=== PATIENT | female | born 1940 | race Caucasian/White ===

== ENCOUNTER → 2016-09-30 | Outpatient (REF) | payer MEDICARE, MEDICAID ==
[~2016-09-30] MED LIST: AMAR1TAB5 PO; CENTTAB PO; CIPRHCOTIC AD; CIPRODEX AD; ECOT81TA5 PO; FENO160T10 PO; GABA-279 PO; GLYX1TAB3 PO; LISI-542 PO; MAGN70CA PO; METF1000 PO; METF500T PO; OMEP40CA2 PO; VITA50003 PO; VITA500C24 PO
[2016-09-30 12:00] LABS: ALBUMIN 3.7 GM/DL (3.2-5.2); ALBUMIN/GLOBULIN RATIO 1.06 (1.00-1.93); BILIRUBIN,TOTAL 0.5 MG/DL (0.2-1.0); CALCIUM LEVEL 9.3 MG/DL (8.8-10.2); CREATININE FOR GFR 1.18 MG/DL (0.55-1.02); GLOMERULAR FILTRATION RATE 47.3 (>39); TOTAL PROTEIN 7.2 GM/DL (6.4-8.2)
== END | disposition home or self-care (01) ==
LOC: M LABDRAW1 11:12
PROVIDERS: ATTEND Family Medicine
DX: E11.40 Type 2 diabetes mellitus with diabetic neuropathy, unspecified (principal)

== ENCOUNTER 2016-10-21 10:20 | Emergency (ER) | payer MEDICARE, MEDICAID ==
[2016-10-21] MEDS ORDERED: CLINDAMYCIN 150 MG CAP As Ordered ONE (11:09)
--- NOTE | 2016-10-21 11:32 | EDDOCDS ---
Nurse's Notes [facility] Name: Edita Landeros Age: 76 yrs Sex: Female : 1940 Arrival Date: 10/21/2016 Time: 10:20 Bed TR7 Private MD: Maribel Gabriel A Diagnosis: Local infection of the skin and subcutaneous tissue, unspecified-Right hand versus cyst/other mass Presentation: 10/21 10:27 Presenting complaint: Patient states: she has had a bump on her right hand for 3 weeks. kcs Adult Sepsis Screening: The patient does not have new or worsening altered mentation. Patient's respiratory rate is less than 22. Systolic blood pressure is greater than 100. Patient has a qSOFA score of 0- Negative Sepsis Screen. Suicide/Homicide risk assessment- the patient denies having any suicidal and/or homicidal ideations and does not present with any other emotional, behavioral or mental health complaints. Status: Patient is not a service porter or dependent. Transition of care: patient was not received from another setting of care. 10:27 Acuity: BRITNEY Level 4 kcs 10:27 Method Of Arrival: Walkin/Carried/Asstd kcs Triage Assessment: 10:35 General: Appears comfortable, well developed, well nourished, well groomed, Behavior is kcs cooperative, pleasant. Pain: Location: right hand Pain currently is 5 out of 10 on a pain scale. At worst was 8 out of 10 on a pain scale. Neurological: Level of Consciousness is awake, alert. Respiratory: Airway is patent Respiratory effort is even, unlabored, Respiratory pattern is regular, symmetrical. Derm: Skin is intact, is healthy with good turgor, Skin is dry, Skin is normal, lump with protrusion to back of right hand. Historical: - Allergies: No known drug Allergies; - Home Meds: 1. fenofibrate 160 mg oral tab 1 tab once daily 2. Amaryl 2 mg Oral tab 1 tab once daily 3. Glyxambi 10-5 mg oral tab 1 tab once daily 4. gabapentin 100 mg oral tab 2-3 capsules 3-4 times daily 5. acetaminophen-codeine 300-30 mg Oral tab 1 tab every 6 hours as needed 6. Drisdol 50,000 unit Oral cap 1 cap once wkly 7. lisinopril 5 mg Oral tab 1 tab once daily 8. Dexilant 60 mg oral CpDB 1 cap once daily 9. multivitamin Oral tab daily 10. Magnesium Oxide 400 mg daily every 2-3 days Oral 11. Vitamin C 500 mg Oral tab daily 12. Fish Oil 1,000 mg Oral cap twice a day - PMHx: hyperlipidemia; - PSHx: R ear surgery; - Social history: Smoking status: Patient states was never smoker of tobacco. No barriers to communication noted, The patient speaks fluent Bulgarian. - Family history: Not pertinent. - : The pt / caregiver states he / she is not on anticoagulants. Home medication list is obtained from the patient, MD office list. - Exposure Risk Screening:: None identified. Screenin:30 Screening information is obtained from the patient. Fall risk: No risks identified. srm Assistance ADL's: requires no assistance with activities of daily living. Abuse/DV Screen: The patient / caregiver reports he/she is: not in a situation that causes fear, pain or injury. Nutritional screening: No deficits noted. Advance Directives: There is no active DNR order. home support is adequate. Assessment: 11:11 General: Appears in no apparent distress, Behavior is appropriate for age, cooperative. srm Neurological: No deficits noted. EENT: No deficits noted. Respiratory: No deficits noted. GI: No deficits noted. Derm: swollen are to top of right hand. Vital Signs: 10:22 BP 139 / 76; Pulse 93; Resp 18; Temp 96.0(O); Pulse Ox 95% on R/A; Weight 75.3 kg (R); lr2 Height 5 ft. 1 in. (154.94 cm) (R); Pain 0/10; 10:22 Body Mass Index 31.37 (75.30 kg, 154.94 cm) lr2 Vitals: 10:22 Log In Time: October 21, 2016 at 10:20. lr2 ED Course: 10:21 Patient visited by Justine Ibrahim. lr2 10:21 Patient moved to Waiting lr2 10:24 Maribel Gabriel is Private Physician. lr2 10:25 Patient moved to Pre RCE lr2 10:29 Triage Initiated kcs 10:37 Patient moved to Triage 1 kcs 10:46 Coco Varela PA-C is PHCP. ef1 10:46 Mariana Boone MD is Attending Physician. ef1 10:51 Patient visited by Coco Varela PA-C. ef1 11:06 Maribel Gabriel is Referral Physician. ef1 11:06 Edita Cooley RNNP is Referral Physician. ef1 11:14 Patient moved to [address] 11:30 The patient / caregiver is instructed regarding the plan of care and ED course. srm Accompanied by Family Member, Patient has correct armband on for positive identification. 11:30 No IV's were initiated during this patient's visit. No procedures done that require srm assistance. Administered Medications: 11:07 CANCELLED (Other Intervention Used): Acetaminophen Tablet 650 mg PO once ef1 11:11 Drug: Clindamycin 300 mg [clindamycin 150 mg capsule (2 caps)] Route: PO; [facility] Order Results: There are currently no results for this order. Outcome: 11:07 Discharge ordered by Provider. ef1 11:30 Discharge Assessment: Patient awake, alert and oriented x 3. No cognitive and/or srm functional deficits noted. Patient verbalized understanding of disposition instructions. patient administered narcotics - no. The following High Risk Discharge criteria are identified: None. Discharged to home ambulatory, with significant other, at 1115. Condition: stable Condition: improved. Discharge instructions given to patient, Instructed on discharge instructions, follow up and referral plans. medication usage, Demonstrated understanding of instructions, medications, Pt was receptive of discharge instructions/ teaching. Prescriptions given X 1. No special radiology studies were completed. Property sent home with patient. 11:31 Patient left the ED. [facility] Signatures: Dorothy Bautista RN RN [facility] Cecilia Bailey RN RN [facility] Coco Varela PA-C PA-C ef1 Justine Ibrahim lr2 MTDD
--- NOTE | 2016-10-21 11:32 | EDDOCDS ---
Physician Documentation [facility] Name: Edita Landeros Age: 76 yrs Sex: Female : 1940 Arrival Date: 10/21/2016 Time: 10:20 Bed TR7 Private MD: Maribel Gabirel A Disposition: 10/21/16 11:07 Discharged to Home/Self Care. Impression: Local infection of the skin and subcutaneous tissue, unspecified - Right hand versus cyst/other mass. - Condition is Stable. - Prescriptions for Clindamycin HCl 300 mg Oral Capsule - take 1 capsule by ORAL route every 6 hours; 40 capsule. - Medication Reconciliation, Local Pharmacy Hours form. - Follow up: Maribel Gabriel; When: 1 - 2 days; Reason: Recheck today's complaints, Continuance of care. Follow up: Emergency Department; Reason: Worsening of conditions. Follow up: Edita Cooley; When: 1 - 2 days; Reason: Further diagnostic work-up, Recheck today's complaints, Continuance of care. - Problem is new. - Symptoms have improved. Historical: - Allergies: No known drug Allergies; - Home Meds: 1. fenofibrate 160 mg oral tab 1 tab once daily 2. Amaryl 2 mg Oral tab 1 tab once daily 3. Glyxambi 10-5 mg oral tab 1 tab once daily 4. gabapentin 100 mg oral tab 2-3 capsules 3-4 times daily 5. acetaminophen-codeine 300-30 mg Oral tab 1 tab every 6 hours as needed 6. Drisdol 50,000 unit Oral cap 1 cap once wkly 7. lisinopril 5 mg Oral tab 1 tab once daily 8. Dexilant 60 mg oral CpDB 1 cap once daily 9. multivitamin Oral tab daily 10. Magnesium Oxide 400 mg daily every 2-3 days Oral 11. Vitamin C 500 mg Oral tab daily 12. Fish Oil 1,000 mg Oral cap twice a day - PMHx: hyperlipidemia; - PSHx: R ear surgery; - Social history: Smoking status: Patient states was never smoker of tobacco. No barriers to communication noted, The patient speaks fluent Welsh. - Family history: Not pertinent. - : The pt / caregiver states he / she is not on anticoagulants. Home medication list is obtained from the patient, MD office list. - Exposure Risk Screening:: None identified. Vital Signs: 10/21 10:22 BP 139 / 76; Pulse 93; Resp 18; Temp 96.0(O); Pulse Ox 95% on R/A; Weight 75.3 kg / lr2 166.01 lbs (R); Height 5 ft. 1 in. (154.94 cm) (R); Pain 0/10; 10:22 Body Mass Index 31.37 (75.30 kg, 154.94 cm) lr2 MDM: 11:04 Clindamycin 300 mg PO once ordered. ef1 11:21 Financial registration complete. mm15 Administered Medications: 11:07 CANCELLED (Other Intervention Used): Acetaminophen Tablet 650 mg PO once ef1 11:11 Drug: Clindamycin 300 mg [clindamycin 150 mg capsule (2 caps)] Route: PO; srm Signatures: Dorothy Bautista RN RN [facility] Cecilia Bailey RN RN srm Coco Varela, SANNA-C PA-C ef1 Daniel Garcia mm15 The chart was reviewed and I authenticate all verbal orders and agree with the evaluation and treatment provided.Corrections: (The following items were deleted from the chart) 11: 11:05 Acetaminophen Tablet 650 mg PO once ordered. ef1 ef1 MTDD
--- NOTE | 2016-10-23 12:32 | EDDOCDS ---
Physician Documentation [facility] Name: Edita Landeros Age: 76 yrs Sex: Female : 1940 Arrival Date: 10/21/2016 Time: 10:20 Bed TR7 Private MD: Maribel Gabriel A Disposition: 10/21/16 11:07 Discharged to Home/Self Care. Impression: Local infection of the skin and subcutaneous tissue, unspecified - Right hand versus cyst/other mass. - Condition is Stable. - Prescriptions for Clindamycin HCl 300 mg Oral Capsule - take 1 capsule by ORAL route every 6 hours; 40 capsule. - Medication Reconciliation, Local Pharmacy Hours form. - Follow up: Maribel Gabriel; When: 1 - 2 days; Reason: Recheck today's complaints, Continuance of care. Follow up: Emergency Department; Reason: Worsening of conditions. Follow up: Edita Cooley; When: 1 - 2 days; Reason: Further diagnostic work-up, Recheck today's complaints, Continuance of care. - Problem is new. - Symptoms have improved. Historical: - Allergies: No known drug Allergies; - Home Meds: 1. fenofibrate 160 mg oral tab 1 tab once daily 2. Amaryl 2 mg Oral tab 1 tab once daily 3. Glyxambi 10-5 mg oral tab 1 tab once daily 4. gabapentin 100 mg oral tab 2-3 capsules 3-4 times daily 5. acetaminophen-codeine 300-30 mg Oral tab 1 tab every 6 hours as needed 6. Drisdol 50,000 unit Oral cap 1 cap once wkly 7. lisinopril 5 mg Oral tab 1 tab once daily 8. Dexilant 60 mg oral CpDB 1 cap once daily 9. multivitamin Oral tab daily 10. Magnesium Oxide 400 mg daily every 2-3 days Oral 11. Vitamin C 500 mg Oral tab daily 12. Fish Oil 1,000 mg Oral cap twice a day - PMHx: hyperlipidemia; - PSHx: R ear surgery; - Social history: Smoking status: Patient states was never smoker of tobacco. No barriers to communication noted, The patient speaks fluent Slovak. - Family history: Not pertinent. - : The pt / caregiver states he / she is not on anticoagulants. Home medication list is obtained from the patient, MD office list. - Exposure Risk Screening:: None identified. Vital Signs: 10/21 10:22 BP 139 / 76; Pulse 93; Resp 18; Temp 96.0(O); Pulse Ox 95% on R/A; Weight 75.3 kg / lr2 166.01 lbs (R); Height 5 ft. 1 in. (154.94 cm) (R); Pain 0/10; 10:22 Body Mass Index 31.37 (75.30 kg, 154.94 cm) lr2 MDM: 11:04 Clindamycin 300 mg PO once ordered. ef1 11:21 Financial registration complete. mm15 13:17 T-Sheet-- Draft Copy was scanned into [email or web address] and attached to record. gb 13:30 [facility] Payment Agreement was scanned into [email or web address] and attached to record. mm15 Administered Medications: 11:07 CANCELLED (Other Intervention Used): Acetaminophen Tablet 650 mg PO once ef1 11:11 Drug: Clindamycin 300 mg [clindamycin 150 mg capsule (2 caps)] Route: PO; srm Signatures: Dorothy Bautista RN RN [facility] Cecilia Bailey RN RN srm Louise Casarez, Reg Reg gb Coco Varela PA-C PA-C ef1 Daniel Garcia mm15 The chart was reviewed and I authenticate all verbal orders and agree with the evaluation and treatment provided.Corrections: (The following items were deleted from the chart) 11:07 11:05 Acetaminophen Tablet 650 mg PO once ordered. ef1 ef1 Attachments: 13:17 T-Sheet-- Draft Copy gb 13:30 [facility] Payment Agreement mm15 Chart Complete MTDD
--- NOTE | 2016-10-23 12:32 | EDDOCDS ---
Physician Documentation [facility] Name: Edita Landeros Age: 76 yrs Sex: Female : 1940 Arrival Date: 10/21/2016 Time: 10:20 Bed TR7 Private MD: Maribel Gabriel A Disposition: 10/21/16 11:07 Discharged to Home/Self Care. Impression: Local infection of the skin and subcutaneous tissue, unspecified - Right hand versus cyst/other mass. - Condition is Stable. - Prescriptions for Clindamycin HCl 300 mg Oral Capsule - take 1 capsule by ORAL route every 6 hours; 40 capsule. - Medication Reconciliation, Local Pharmacy Hours form. - Follow up: Maribel Gabriel; When: 1 - 2 days; Reason: Recheck today's complaints, Continuance of care. Follow up: Emergency Department; Reason: Worsening of conditions. Follow up: Edita Cooley; When: 1 - 2 days; Reason: Further diagnostic work-up, Recheck today's complaints, Continuance of care. - Problem is new. - Symptoms have improved. Historical: - Allergies: No known drug Allergies; - Home Meds: 1. fenofibrate 160 mg oral tab 1 tab once daily 2. Amaryl 2 mg Oral tab 1 tab once daily 3. Glyxambi 10-5 mg oral tab 1 tab once daily 4. gabapentin 100 mg oral tab 2-3 capsules 3-4 times daily 5. acetaminophen-codeine 300-30 mg Oral tab 1 tab every 6 hours as needed 6. Drisdol 50,000 unit Oral cap 1 cap once wkly 7. lisinopril 5 mg Oral tab 1 tab once daily 8. Dexilant 60 mg oral CpDB 1 cap once daily 9. multivitamin Oral tab daily 10. Magnesium Oxide 400 mg daily every 2-3 days Oral 11. Vitamin C 500 mg Oral tab daily 12. Fish Oil 1,000 mg Oral cap twice a day - PMHx: hyperlipidemia; - PSHx: R ear surgery; - Social history: Smoking status: Patient states was never smoker of tobacco. No barriers to communication noted, The patient speaks fluent Maori. - Family history: Not pertinent. - : The pt / caregiver states he / she is not on anticoagulants. Home medication list is obtained from the patient, MD office list. - Exposure Risk Screening:: None identified. Vital Signs: 10/21 10:22 BP 139 / 76; Pulse 93; Resp 18; Temp 96.0(O); Pulse Ox 95% on R/A; Weight 75.3 kg / lr2 166.01 lbs (R); Height 5 ft. 1 in. (154.94 cm) (R); Pain 0/10; 10:22 Body Mass Index 31.37 (75.30 kg, 154.94 cm) lr2 MDM: 11:04 Clindamycin 300 mg PO once ordered. ef1 11:21 Financial registration complete. mm15 13:17 T-Sheet-- Draft Copy was scanned into [employer] and attached to record. gb 13:30 [facility] Payment Agreement was scanned into [employer] and attached to record. mm15 Administered Medications: 11:07 CANCELLED (Other Intervention Used): Acetaminophen Tablet 650 mg PO once ef1 11:11 Drug: Clindamycin 300 mg [clindamycin 150 mg capsule (2 caps)] Route: PO; srm Signatures: Dorothy Bautista RN RN [facility] Cecilia Bailey RN RN srm Louise Casarez, Reg Reg gb Coco Varela PA-C PA-C ef1 Daniel Garcia mm15 The chart was reviewed and I authenticate all verbal orders and agree with the evaluation and treatment provided.Corrections: (The following items were deleted from the chart) 11:07 11:05 Acetaminophen Tablet 650 mg PO once ordered. ef1 ef1 Attachments: 13:17 T-Sheet-- Draft Copy gb 13:30 [facility] Payment Agreement mm15 Chart Complete MTDD
--- NOTE | 2016-10-23 12:32 | EDDOCDS ---
Nurse's Notes [facility] Name: Edita Landeros Age: 76 yrs Sex: Female : 1940 Arrival Date: 10/21/2016 Time: 10:20 Bed TR7 Private MD: Maribel Gabriel A Diagnosis: Local infection of the skin and subcutaneous tissue, unspecified-Right hand versus cyst/other mass Presentation: 10/21 10:27 Presenting complaint: Patient states: she has had a bump on her right hand for 3 weeks. kcs Adult Sepsis Screening: The patient does not have new or worsening altered mentation. Patient's respiratory rate is less than 22. Systolic blood pressure is greater than 100. Patient has a qSOFA score of 0- Negative Sepsis Screen. Suicide/Homicide risk assessment- the patient denies having any suicidal and/or homicidal ideations and does not present with any other emotional, behavioral or mental health complaints. 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 Transition of care: patient was not received from another setting of care. 10:27 Acuity: BRITNEY Level 4 kcs 10:27 Method Of Arrival: Walkin/Carried/Asstd kcs Triage Assessment: 10:35 General: Appears comfortable, well developed, well nourished, well groomed, Behavior is kcs cooperative, pleasant. Pain: Location: right hand Pain currently is 5 out of 10 on a pain scale. At worst was 8 out of 10 on a pain scale. Neurological: Level of Consciousness is awake, alert. Respiratory: Airway is patent Respiratory effort is even, unlabored, Respiratory pattern is regular, symmetrical. Derm: Skin is intact, is healthy with good turgor, Skin is dry, Skin is normal, lump with protrusion to back of right hand. Historical: - Allergies: No known drug Allergies; - Home Meds: 1. fenofibrate 160 mg oral tab 1 tab once daily 2. Amaryl 2 mg Oral tab 1 tab once daily 3. Glyxambi 10-5 mg oral tab 1 tab once daily 4. gabapentin 100 mg oral tab 2-3 capsules 3-4 times daily 5. acetaminophen-codeine 300-30 mg Oral tab 1 tab every 6 hours as needed 6. Drisdol 50,000 unit Oral cap 1 cap once wkly 7. lisinopril 5 mg Oral tab 1 tab once daily 8. Dexilant 60 mg oral CpDB 1 cap once daily 9. multivitamin Oral tab daily 10. Magnesium Oxide 400 mg daily every 2-3 days Oral 11. Vitamin C 500 mg Oral tab daily 12. Fish Oil 1,000 mg Oral cap twice a day - PMHx: hyperlipidemia; - PSHx: R ear surgery; - Social history: Smoking status: Patient states was never smoker of tobacco. No barriers to communication noted, The patient speaks fluent Argentine. - Family history: Not pertinent. - : The pt / caregiver states he / she is not on anticoagulants. Home medication list is obtained from the patient, MD office list. - Exposure Risk Screening:: None identified. Screenin:30 Screening information is obtained from the patient. Fall risk: No risks identified. srm Assistance ADL's: requires no assistance with activities of daily living. Abuse/DV Screen: The patient / caregiver reports he/she is: not in a situation that causes fear, pain or injury. Nutritional screening: No deficits noted. Advance Directives: There is no active DNR order. home support is adequate. Assessment: 11:11 General: Appears in no apparent distress, Behavior is appropriate for age, cooperative. srm Neurological: No deficits noted. EENT: No deficits noted. Respiratory: No deficits noted. GI: No deficits noted. Derm: swollen are to top of right hand. Vital Signs: 10:22 BP 139 / 76; Pulse 93; Resp 18; Temp 96.0(O); Pulse Ox 95% on R/A; Weight 75.3 kg (R); lr2 Height 5 ft. 1 in. (154.94 cm) (R); Pain 0/10; 10:22 Body Mass Index 31.37 (75.30 kg, 154.94 cm) lr2 Vitals: 10:22 Log In Time: October 21, 2016 at 10:20. lr2 ED Course: 10:21 Patient visited by Jutsine Ibrahim. lr2 10:21 Patient moved to Waiting lr2 10:24 Maribel Gabriel is Private Physician. lr2 10:25 Patient moved to Pre RCE lr2 10:29 Triage Initiated kcs 10:37 Patient moved to Triage 1 kcs 10:46 Coco Varela PA-C is PHCP. ef1 10:46 Mariana Boone MD is Attending Physician. ef1 10:51 Patient visited by Coco Varela PA-C. ef1 11:06 Maribel Gabriel is Referral Physician. ef1 11:06 Edita Cooley RNNP is Referral Physician. ef1 11:14 Patient moved to [address] 11:30 The patient / caregiver is instructed regarding the plan of care and ED course. srm Accompanied by Family Member, Patient has correct armband on for positive identification. 11:30 No IV's were initiated during this patient's visit. No procedures done that require srm assistance. 13:17 T-Sheet-- Draft Copy was scanned into [employer] and attached to record. gb 13:30 [facility] Payment Agreement was scanned into [employer] and attached to record. mm15 Administered Medications: 11:07 CANCELLED (Other Intervention Used): Acetaminophen Tablet 650 mg PO once ef1 11:11 Drug: Clindamycin 300 mg [clindamycin 150 mg capsule (2 caps)] Route: PO; [facility] Order Results: There are currently no results for this order. Outcome: 11:07 Discharge ordered by Provider. ef1 11:30 Discharge Assessment: Patient awake, alert and oriented x 3. No cognitive and/or srm functional deficits noted. Patient verbalized understanding of disposition instructions. patient administered narcotics - no. The following High Risk Discharge criteria are identified: None. Discharged to home ambulatory, with significant other, at 1115. Condition: stable Condition: improved. Discharge instructions given to patient, Instructed on discharge instructions, follow up and referral plans. medication usage, Demonstrated understanding of instructions, medications, Pt was receptive of discharge instructions/ teaching. Prescriptions given X 1. No special radiology studies were completed. Property sent home with patient. 11:31 Patient left the ED. [facility] Signatures: Dorothy Bautista, RN Cecilia Coyne RN RN [facility] Louise Casarez, Reg Reg gb Coco Varela PA-C PA-C ef1 Daniel Garcia mm15 Justine Ibrahim2 Chart Complete MTDD
== END 2016-10-21 11:31 | disposition home or self-care (01) ==
LOC: M ED 10:20
DX: L08.9 Local infection of the skin and subcutaneous tissue, unspecified (principal); E78.5 Hyperlipidemia, unspecified; Z79.899 Other long term (current) drug therapy

== ENCOUNTER → 2016-12-30 | Outpatient (REF) | payer MEDICARE, MEDICAID ==
[2016-12-30 12:22] LABS: ALBUMIN 3.7 GM/DL (3.2-5.2); ALBUMIN/GLOBULIN RATIO 1.09 (1.00-1.93); BILIRUBIN,TOTAL 0.3 MG/DL (0.2-1.0); CALCIUM LEVEL 9.2 MG/DL (8.8-10.2); CREATININE FOR GFR 1.11 MG/DL (0.55-1.02); GLOMERULAR FILTRATION RATE 50.7 (>39); POTASSIUM SERUM 4.2 MEQ/L (3.5-5.1); TOTAL PROTEIN 7.1 GM/DL (6.4-8.2)
== END ==
LOC: M LABDRAW1 11:17
PROVIDERS: ATTEND Family Medicine
DX: E11.40 Type 2 diabetes mellitus with diabetic neuropathy, unspecified (principal)

== ENCOUNTER → 2017-04-24 | Outpatient (REF) | payer MEDICARE, MEDICAID ==
[~2017-04-24] MED LIST changes: -METF1000 PO; +METF10004 PO; -METF500T PO; +METF500T13 PO; +VITA1CAP40 PO; -VITA50003 PO
[2017-04-24 12:29] LABS: ALBUMIN 3.6 GM/DL (3.2-5.2); ALBUMIN/GLOBULIN RATIO 1.09 (1.00-1.93); BILIRUBIN,TOTAL 0.4 MG/DL (0.2-1.0); CALCIUM LEVEL 9.6 MG/DL (8.8-10.2); CREATININE FOR GFR 1.12 MG/DL (0.55-1.02); GLOMERULAR FILTRATION RATE 50.2 (>39); POTASSIUM SERUM 4.3 MEQ/L (3.5-5.1); TOTAL PROTEIN 6.9 GM/DL (6.4-8.2)
== END ==
LOC: M LABDRAW1 07:41
PROVIDERS: ATTEND Family Medicine
DX: E11.40 Type 2 diabetes mellitus with diabetic neuropathy, unspecified (principal); E78.2 Mixed hyperlipidemia

== ENCOUNTER → 2017-10-26 | Outpatient (REF) | payer MEDICARE, MEDICAID ==
[2017-10-26 12:01] LABS: BASO # 0.1 10^3/uL (0.0-0.2); BASO % 1.3 % (0.0-1.0); HEMATOCRIT 41.2 % (36.0-47.0); HEMOGLOBIN 13.4 g/dl (12.0-16.0); IMMATURE GRANULOCYTE % 0.4 % (0-3.0); LYMPH # 1.2 10^3/uL (1.5-4.5); LYMPH % 25.7 % (24.0-44.0); MEAN CORPUSCULAR HEMOGLOBIN 29.3 pg (27.0-33.0); MEAN CORPUSCULAR HGB CONC 32.5 g/dl (32.0-36.5); MEAN CORPUSCULAR VOLUME 90.2 fl (80.0-96.0); MONO # 0.5 10^3/uL (0.0-0.8); MONO % 10.6 % (0.0-5.0); NEUTROPHILS # 2.9 10^3/uL (1.8-7.7); PLATELET COUNT, AUTOMATED 227 10^3/uL (150-450); RED BLOOD COUNT 4.57 10^6/uL (4.00-5.40); RED CELL DISTRIBUTION WIDTH 14.2 % (11.5-14.5); WHITE BLOOD COUNT 4.6 10^3/uL (4.0-10.0)
[2017-10-26 12:20] LABS: ESTIMATED AVERAGE GLUCOSE 169 MG/DL (60-110); HEMOGLOBIN A1c 7.5 %
[2017-10-26 12:25] LABS: ALBUMIN 3.9 GM/DL (3.2-5.2); ALBUMIN/GLOBULIN RATIO 1.15 (1.00-1.93); ALKALINE PHOSPHATASE 48 U/L (45-117); ALT/SGPT 39 U/L (12-78); ANION GAP 9 MEQ/L (8-16); AST/SGOT 26 U/L (7-37); BILIRUBIN,TOTAL 0.5 MG/DL (0.2-1.0); BLOOD UREA NITROGEN 31 MG/DL (7-18); CALCIUM LEVEL 9.8 MG/DL (8.8-10.2); CARBON DIOXIDE LEVEL 27 MEQ/L (21-32); CHLORIDE LEVEL 107 MEQ/L (98-107); CREATININE FOR GFR 1.19 MG/DL (0.55-1.30); GLOMERULAR FILTRATION RATE 46.7 (>39); GLUCOSE, FASTING 173 MG/DL (70-100); POTASSIUM SERUM 4.2 MEQ/L (3.5-5.1); SODIUM LEVEL 143 MEQ/L (136-145); TOTAL PROTEIN 7.3 GM/DL (6.4-8.2)
[2017-10-26 12:51] LABS: CREATININE, URINE 49.3 MG/DL; MAU/CREAT RATIO 107.5 MCG/MG (0.0-30.0)
== END ==
LOC: M LABDRAW1 11:47
DX: E11.40 Type 2 diabetes mellitus with diabetic neuropathy, unspecified (principal)
CPT/HCPCS: 80053

== ENCOUNTER → 2017-12-14 | Outpatient (REF) | payer MEDICARE, MEDICAID | LOC: M LAB REF 15:51 | DX: L08.9 Local infection of the skin and subcutaneous tissue, unspecified (principal) | CPT/HCPCS: 87070 ==

== ENCOUNTER → 2018-01-29 | Outpatient (REF) | payer MEDICARE, MEDICAID ==
[2018-01-29 14:37] LABS: ALBUMIN 3.8 GM/DL (3.2-5.2); ALBUMIN/GLOBULIN RATIO 1.15 (1.00-1.93); ALKALINE PHOSPHATASE 60 U/L (45-117); ALT/SGPT 32 U/L (12-78); ANION GAP 8 MEQ/L (8-16); AST/SGOT 19 U/L (7-37); BILIRUBIN,TOTAL 0.4 MG/DL (0.2-1.0); BLOOD UREA NITROGEN 29 MG/DL (7-18); CALCIUM LEVEL 9.3 MG/DL (8.8-10.2); CARBON DIOXIDE LEVEL 26 MEQ/L (21-32); CHLORIDE LEVEL 108 MEQ/L (98-107); CREATININE FOR GFR 1.09 MG/DL (0.55-1.30); GLOMERULAR FILTRATION RATE 51.7 (>39); GLUCOSE, FASTING 147 MG/DL (70-100); POTASSIUM SERUM 4.5 MEQ/L (3.5-5.1); SODIUM LEVEL 142 MEQ/L (136-145); TOTAL PROTEIN 7.1 GM/DL (6.4-8.2)
[2018-01-29 14:41] LABS: ESTIMATED AVERAGE GLUCOSE 166 MG/DL (60-110); HEMOGLOBIN A1c 7.4 %
== END ==
LOC: M LABDRAW1 12:30
DX: E11.40 Type 2 diabetes mellitus with diabetic neuropathy, unspecified (principal)
CPT/HCPCS: 80053

== ENCOUNTER → 2018-04-07 | Outpatient (REF) | payer MEDICARE, MEDICAID | LOC: M LAB REF 15:32 | DX: H60.311 Diffuse otitis externa, right ear (principal) | CPT/HCPCS: 87070 ==

== ENCOUNTER → 2018-08-04 | Outpatient (REF) | payer MEDICARE, MEDICAID ==
[2018-08-04 12:25] LABS: ALBUMIN 3.7 GM/DL (3.2-5.2); ALBUMIN/GLOBULIN RATIO 1.12 (1.00-1.93); ALKALINE PHOSPHATASE 54 U/L (45-117); ALT/SGPT 29 U/L (12-78); ANION GAP 10 MEQ/L (8-16); AST/SGOT 18 U/L (7-37); BILIRUBIN,TOTAL 0.4 MG/DL (0.2-1.0); BLOOD UREA NITROGEN 34 MG/DL (7-18); CALCIUM LEVEL 9.3 MG/DL (8.8-10.2); CARBON DIOXIDE LEVEL 26 MEQ/L (21-32); CHLORIDE LEVEL 106 MEQ/L (98-107); CREATININE FOR GFR 1.11 MG/DL (0.55-1.30); GLOMERULAR FILTRATION RATE 50.5 (>39); GLUCOSE, FASTING 165 MG/DL (70-100); POTASSIUM SERUM 4.3 MEQ/L (3.5-5.1); SODIUM LEVEL 142 MEQ/L (136-145)
[2018-08-04 12:40] LABS: ESTIMATED AVERAGE GLUCOSE 186 MG/DL (60-110); HEMOGLOBIN A1c 8.1 %
== END ==
LOC: M LABDRAW1 09:16
DX: E11.40 Type 2 diabetes mellitus with diabetic neuropathy, unspecified (principal)
CPT/HCPCS: 80053

== ENCOUNTER → 2018-11-01 | Outpatient (REF) | payer MEDICARE, MEDICAID ==
[~2018-11-01] MED LIST changes: +GABA-1171 PO; -GABA-279 PO; -VITA1CAP40 PO; +VITA50005 PO
[2018-11-01 12:46] LABS: CALCIUM LEVEL 9.3 MG/DL (8.8-10.2); CREATININE FOR GFR 1.3 MG/DL (0.55-1.30); GLOMERULAR FILTRATION RATE 42.1 (>39); POTASSIUM SERUM 4.5 MEQ/L (3.5-5.1)
[2018-11-01 12:56] LABS: HEMOGLOBIN A1c 7.1 %
== END ==
LOC: M LABDRAW1 12:09
PROVIDERS: ATTEND Physician Assistant
DX: E11.40 Type 2 diabetes mellitus with diabetic neuropathy, unspecified (principal)

== ENCOUNTER → 2019-01-18 | Outpatient (CLI) | payer MEDICARE, MEDICAID | LOC: M LAB 13:43 | PROVIDERS: ATTEND Otolaryngology | DX: M31.6 Other giant cell arteritis (principal) ==

== ENCOUNTER → 2019-02-02 | Outpatient (REF) | payer MEDICARE, MEDICAID ==
[2019-02-02 10:50] LABS: ALT/SGPT 36 U/L (12-78); BILIRUBIN,TOTAL 0.5 MG/DL (0.2-1.0); BLOOD UREA NITROGEN 31 MG/DL (7-18); CARBON DIOXIDE LEVEL 27 MEQ/L (21-32); CHLORIDE LEVEL 106 MEQ/L (98-107); CHOLESTEROL LEVEL 220 MG/DL (<200); CHOLESTEROL RISK RATIO 6.285 (<5); CREATININE FOR GFR 1.14 MG/DL (0.55-1.30); GLOMERULAR FILTRATION RATE 48.9 (>39); GLUCOSE, FASTING 156 MG/DL (70-100); HDL CHOLESTEROL 35 MG/DL (>40); NON-HDL-C 185 MG/DL; POTASSIUM SERUM 4.7 MEQ/L (3.5-5.1); SODIUM LEVEL 141 MEQ/L (136-145); TOTAL PROTEIN 7.3 GM/DL (6.4-8.2); TRIGLYCERIDES LEVEL 463 MG/DL (<150)
[2019-02-02 14:29] LABS: CREATININE, URINE 55.4 MG/DL; MALB URINE SIEMENS 28.2 MG/L; MAU/CREAT RATIO 50.9 MCG/MG (0.0-30.0)
== END ==
LOC: M LABDRAW1 08:21
PROVIDERS: ATTEND Family Medicine
DX: E11.40 Type 2 diabetes mellitus with diabetic neuropathy, unspecified (principal)

== ENCOUNTER → 2019-02-21 | Outpatient (REF) | payer MEDICARE, MEDICAID ==
[2019-02-21 13:10] LABS: HEMATOCRIT 41.4 % (36.0-47.0); HEMOGLOBIN 13.3 g/dl (12.0-15.5); MEAN CORPUSCULAR HEMOGLOBIN 29.4 pg (27.0-33.0); MEAN CORPUSCULAR HGB CONC 32.1 g/dl (32.0-36.5); MEAN CORPUSCULAR VOLUME 91.6 fl (80.0-96.0); PLATELET COUNT, AUTOMATED 262 10^3/uL (150-450); RED BLOOD COUNT 4.52 10^6/uL (4.00-5.40)
[2019-02-21 13:57] LABS: ERYTHROCYTE SEDIMENTATION RATE 37 mm/hr (0-30)
== END ==
LOC: M LABDRAW1 12:09
PROVIDERS: ATTEND Ophthalmology
DX: M31.6 Other giant cell arteritis (principal)

== ENCOUNTER → 2019-08-02 | Outpatient (REF) | payer MEDICARE, MEDICAID ==
[~2019-08-02] MED LIST changes: -OMEP40CA2 PO; +OMEP40CA97 PO
[2019-08-02 12:27] LABS: ALBUMIN 3.5 GM/DL (3.2-5.2); ALT/SGPT 28 U/L (12-78); BILIRUBIN,TOTAL 0.7 MG/DL (0.2-1.0); BLOOD UREA NITROGEN 30 MG/DL (7-18); CALCIUM LEVEL 9.7 MG/DL (8.8-10.2); CARBON DIOXIDE LEVEL 26 MEQ/L (21-32); CHLORIDE LEVEL 108 MEQ/L (98-107); CHOLESTEROL LEVEL 213 MG/DL (<200); CHOLESTEROL RISK RATIO 5.916 (<5); GLOMERULAR FILTRATION RATE 50.9 (>32); GLUCOSE, FASTING 156 MG/DL (70-100); HDL CHOLESTEROL 36 MG/DL (>40); NON-HDL-C 177 MG/DL; POTASSIUM SERUM 4.1 MEQ/L (3.5-5.1); SODIUM LEVEL 143 MEQ/L (136-145); TOTAL PROTEIN 6.9 GM/DL (6.4-8.2); TRIGLYCERIDES LEVEL 489 MG/DL (<150)
[2019-08-02 12:39] LABS: CREATININE, URINE 49.3 MG/DL; MALB URINE SIEMENS 14.9 MG/L; MAU/CREAT RATIO 30.2 MCG/MG (0.0-30.0)
[2019-08-02 13:44] LABS: HEMOGLOBIN A1c 7.5 %
== END ==
LOC: M LABDRAW1 11:45
PROVIDERS: ATTEND Family Medicine
DX: E11.40 Type 2 diabetes mellitus with diabetic neuropathy, unspecified (principal)

== ENCOUNTER → 2019-10-31 | Outpatient (REF) | payer OTHER, MEDICAID ==
[2019-10-31 11:32] LABS: HEMOGLOBIN A1c 6.8 %
== END ==
LOC: M LABDRAW1 07:58
PROVIDERS: ATTEND Family Medicine
DX: E11.40 Type 2 diabetes mellitus with diabetic neuropathy, unspecified (principal)

== ENCOUNTER → 2020-05-02 | Outpatient (REF) | payer OTHER, MEDICAID ==
[2020-05-02 13:56] LABS: BASO # 0.1 10^3/uL (0.0-0.2); BASO % 1.1 % (0.0-1.0); HEMATOCRIT 39.5 % (36.0-47.0); HEMOGLOBIN 12.4 g/dl (12.0-15.5); LYMPH # 1.3 10^3/uL (1.5-5.0); LYMPH % 23.6 % (24.0-44.0); MEAN CORPUSCULAR HEMOGLOBIN 29.4 pg (27.0-33.0); MEAN CORPUSCULAR HGB CONC 31.4 g/dl (32.0-36.5); MEAN CORPUSCULAR VOLUME 93.6 fl (80.0-96.0); MONO # 0.6 10^3/uL (0.0-0.8); MONO % 10.1 % (0.0-5.0); NEUTROPHILS # 3.6 10^3/uL (1.5-8.5); NEUTROPHILS % 64.8 % (36.0-66.0); PLATELET COUNT, AUTOMATED 268 10^3/uL (150-450); RED BLOOD COUNT 4.22 10^6/uL (4.00-5.40); WHITE BLOOD COUNT 5.6 10^3/uL (4.0-10.0)
[2020-05-02 14:16] LABS: ALBUMIN 3.7 GM/DL (3.2-5.2); BILIRUBIN,TOTAL 0.5 MG/DL (0.2-1.0); CALCIUM LEVEL 9.9 MG/DL (8.8-10.2); CHOLESTEROL RISK RATIO 5.476 (<5); GLOMERULAR FILTRATION RATE 56.8 (>32); POTASSIUM SERUM 4.7 MEQ/L (3.5-5.1); TOTAL PROTEIN 7.1 GM/DL (6.4-8.2)
[2020-05-02 14:35] LABS: CREATININE, URINE 46.7 MG/DL; MALB URINE SIEMENS 30.6 MG/L; MAU/CREAT RATIO 65.5 MCG/MG (0.0-30.0)
[2020-05-02 16:23] LABS: HEMOGLOBIN A1c 6.2 %
== END ==
LOC: M LABDRWAD 08:05
PROVIDERS: ATTEND Family Medicine
DX: E11.40 Type 2 diabetes mellitus with diabetic neuropathy, unspecified (principal)